=== PATIENT | male | born 1995 | race Caucasian/White ===

== ENCOUNTER 2019-01-04 06:01 | Day surgery (SDC) | payer OTHER ==
[2019-01-04] MEDS ORDERED: FENTAnyl 50 MCG/ML VIAL (08:07)
[2019-01-04] MEDS ORDERED: MIDAZOLAM 1 MG/ML 2 ML INJ ×2 (08:07)
== END 2019-01-04 13:56 | disposition home or self-care (01) ==
LOC: GIL 06:01
DX: K21.9 Gastro-esophageal reflux disease without esophagitis (principal); K29.30 Chronic superficial gastritis without bleeding
CPT/HCPCS: 43239; 88305; 88312